=== PATIENT | male | born 1960 | race Caucasian/White ===

== ENCOUNTER 2018-04-27 15:42 | Inpatient (IN) | payer OTHER ==
[~2018-04-27] VITALS: Ht 182.9 cm; Wt 90.6 kg
[2018-04-27] MEDS ORDERED: ASPIRIN81 MG PO (15:50)
--- NOTE | 2018-04-27 15:50 | NUR ---
PT TO ROOM WITH STEADY GAIT
[2018-04-27 16:35] LABS: HEMATOCRIT 42.9 % (39.0-50.0); HEMOGLOBIN 14.7 g/dl (14.0-18.0); IMMATURE GRANULOCYTES 0.3 % (0.0-5.0); MEAN CELL VOLUME 86.1 fL CALC (80.0-100.0); MEAN CORPUSCULAR HGB 29.5 pG CALC (26.0-32.0); MEAN CORPUSCULAR HGB CONC 34.3 g/L CALC (32.0-36.0); NEUT# 7.09 thou/uL (1.82-7.42); RED BLOOD COUNT 4.98 mill/uL (4.70-6.10); RED CELL DISTRI WIDTH 11.7 % (11.5-15.5); URINE BILIRUBIN - DIPSTICK NEGATIVE (NEGATIVE); URINE BLOOD DIPSTICK NEGATIVE (NEGATIVE); URINE CLARITY CLEAR; URINE COLOR YELLOW; URINE GLUCOSE - DIPSTICK NEGATIVE (NEGATIVE); URINE KETONE NEGATIVE (NEGATIVE); URINE LEUK ESTERASE NEGATIVE (NEGATIVE); URINE NITRITE - DIPSTICK NEGATIVE (Negative); URINE PROTEIN - DIPSTICK TRACE mg/dL (NEG-TRACE)
--- NOTE | 2018-04-27 16:46 | NUR ---
PT STATES HAVING TREMORS, HYPERVENTILATING AFTER MEDICAION WAS GIVEN. MD TO BEDSIDE. CALLED FOR ANAPHALYTIC KIT
--- NOTE | 2018-04-27 16:50 | NUR ---
AT BEDSIDE. PT STILL HYPERVENTILATING AND C/O "DIAPHRAGM PAIN" O2 SAT 98% ON RA. LUNGS CLEAR TO AUSCULTATION. NO REDNESS,FLUSHING OR HIVING NOTED. PT C/O TINGLING OF HANDS AND FEET AND FEELING "SCARED". VSS.ADMINISTERED PEPCID 20MG IVP,BENADRYL 50MG IVP AND SOLUMEDROL 125MG IVP DIRECTED BY MD. PT TOLERATED WELL.
[2018-04-27 16:52] LABS: ALBUMIN 4.6 g/dL (3.2-5.0); ALKALINE PHOSPHATASE 75 u/l (38-126); ANION GAP 17 (6-22 (CALC)); BILIRUBIN, TOTAL 0.7 mg/dL (0.0-1.4); BUN 15 mg/dL (9-20); BUN/CREATININE RATIO 16 (12-20 (CALC)); CARBON DIOXIDE 25 mmol/l (22-30); CHLORIDE 106 mmol/l (95-108); CREATININE 0.9 mg/dL (0.7-1.3); GFR > 60 ML/MIN (>=60 (CALC)); GFR FOR AFR.AMER. > 60 ML/MIN (>=60 (CALC)); LIPASE 22 u/l (23-300); SGOT/AST 63 u/l (17-59); SODIUM 144 mmol/l (137-146); TOTAL PROTEIN 8.2 g/dL (6.3-8.2)
--- NOTE | 2018-04-27 17:00 | NUR ---
PT TALKING AND INTERACTING MORE APPROPRIATELY. VSS. LUNGS CLEAR. NO REDNESS,FLUSHING OR HIVES NOTED. PT OKED TO GO TO CT PER MD
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
--- NOTE | 2018-04-27 17:55 | NUR ---
PT RESTING QUIETLY, STILL COMPLAINT OF ABDOMINAL PAIN ACROSS MID SECTION.
--- NOTE | 2018-04-27 18:23 | NUR ---
PTS VITAL SIGNS STABLE, PT STATES STILL HAVING SOME PAIN, NOTIFIED.
--- NOTE | 2018-04-27 18:51 | NUR ---
AFTER MORPHINE PT PAIN LEVEL HAS DROPPED TO A 2, ON PHONE TALKING WITH , PT LIVES 3 HOURS AWAY AND IS WORRIED ABOUT , DRIVING DOWN AT NIGHT.
--- NOTE | 2018-04-27 19:26 | NUR ---
ADVISED PT WAITING ON ADMITTING SURGEON TO CALL BACK FOR POSSIBLE ADMISSION.
[2018-04-27 20:25] VITALS: BP 181/79
--- NOTE | 2018-04-27 20:32 | NUR ---
PT TRANSFERRED TO [facility] WITH TELEMENTRY FOR CONT OF CARE.
[2018-04-27 23:46] VITALS: BP 130/70
[2018-04-28 04:00] VITALS: BP 138/73
[2018-04-28 05:53] LABS: HEMATOCRIT 44.1 % (39.0-50.0); HEMOGLOBIN 15.2 g/dl (14.0-18.0); IMMATURE GRANULOCYTES 0.5 % (0.0-5.0); MEAN CELL VOLUME 85.8 fL CALC (80.0-100.0); MEAN CORPUSCULAR HGB 29.6 pG CALC (26.0-32.0); MEAN CORPUSCULAR HGB CONC 34.5 g/L CALC (32.0-36.0); NEUT# 11.05 thou/uL (1.82-7.42); RED BLOOD COUNT 5.14 mill/uL (4.70-6.10); RED CELL DISTRI WIDTH 11.7 % (11.5-15.5)
[2018-04-28 06:09] LABS: ALBUMIN 4.1 g/dL (3.2-5.0); ALKALINE PHOSPHATASE 108 u/l (38-126); ANION GAP 17 (6-22 (CALC)); BILIRUBIN, TOTAL 1.6 mg/dL (0.0-1.4); BUN 16 mg/dL (9-20); BUN/CREATININE RATIO 19 (12-20 (CALC)); CARBON DIOXIDE 21 mmol/l (22-30); CHLORIDE 107 mmol/l (95-108); CREATININE 0.8 mg/dL (0.7-1.3); GFR > 60 ML/MIN (>=60 (CALC)); GFR FOR AFR.AMER. > 60 ML/MIN (>=60 (CALC)); POTASSIUM 4.7 mmol/l (3.5-5.1); SODIUM 139 mmol/l (137-146); TOTAL PROTEIN 7.1 g/dL (6.3-8.2)
[2018-04-28 06:15] LABS: SGOT/AST 213 u/l (17-59)
[2018-04-28 07:35] VITALS: BP 163/68
--- NOTE | 2018-04-28 07:35 | NUR ---
PT RESTING IN BED ALER ADN ORIENTED, AM ASSESSMENT COMPLETED AT THIS TIME, SEE INTERVENTIONS; SKIN WARM DRY AND INTACT; IV ACCESS IN LEFT AC SL AT THIS TIME; STATES HAVING SOME PAIN CURRNETLY AT LEVEL 4-5; DENIES NAUSEA STATES HE IS SOMETIMES NAUSEOUS IF THE PAIN GETS UP TO A 11-12; OTHERWISE DENIES; SKIN WARM DRY AND INTACT WITH NO BREAKDOWN NOTED, ABD SOFT TENDER TO PALPATION; EDUCATED REGARDING NPO; AND REASON FOR NPO; PLAN OF CARE DISCUSSED INCLUDING POSSIBLE TRASNFER TO ANOTHER FACILITY FOR POTENTIAL SURGERY. PT VERBALIZES UNDERSTANDING, CALL [facility] WITHIN REACH
--- NOTE | 2018-04-28 07:44 | NUR ---
PT ADMITTED FOR CHOLECYSTITIS. PT C/O PAIN. MD CONTACTED. ORDERS RECIEVED FOR MORPHINE 2MG AND HYDRALIZINE 10MG IV PUSH. BOTH MEDICATIONS EFFECTIVE.PT NPO AFTER MIDNIGHT. MONITORED THROUGHOUT THE SHIFT
--- NOTE | 2018-04-28 09:15 | NUR ---
PT MEDICATED EARLIER FOR COMPLAINTS OF PAIN WITH MINIMAL RELIEF, ROSLYN CERON AWARE AND NEW ORDERS REC'D, PLANNED TRASNFER TO [facility] FOR SURGICALK CONSULT/INTERVENTION, PT AWARE AND CASE MGMT INVOLVED.
--- NOTE | 2018-04-28 10:15 | NUR ---
AT BEDSIDE, NPO STATUS MAINTAINED, CALL [facility] WITHIN REACH
--- NOTE | 2018-04-28 11:15 | NUR ---
MEDICATED ORDERED FOR PAIN WITH DILAUDID, PT EDUCATED REGARDING REASON FOR ADMINISTRATION, EXPECTATIONS AND POSSIBLE SIDE EFFECTS, ALL QUESTIONS ANSWERED, WILL CONTINUE TO MONITOR
--- NOTE | 2018-04-28 11:35 | NUR ---
[facility] AT BEDSIDE, PT TRANSFERRED TO [facility] VIA STRETCHER, ALL BELONGINGS SENT WITH PATIENT, AT BEDSIDE AND TO FOLLOW
--- NOTE | 2018-04-28 12:50 | NUR ---
REPORT CALLED TO TERNT RN AT [facility]
== END 2018-04-28 11:35 | DRG 446 ==
LOC: ED 15:42 → ED-I 18:14 → ED 19:40 → MS2 19:41
PROVIDERS: Family Medicine; Nurse Practitioner Family; ADMIT Internal Medicine Nephrology; ATTEND Internal Medicine Nephrology
DX: K80.00 Calculus of gallbladder with acute cholecystitis without obstruction (principal); I16.0 Hypertensive urgency; Z86.711 Personal history of pulmonary embolism; Z79.82 Long term (current) use of aspirin; Z87.891 Personal history of nicotine dependence; Z83.79 Family history of other diseases of the digestive system; Z86.718 Personal history of other venous thrombosis and embolism
CPT/HCPCS: Q9967; S0164